=== PATIENT | female | born 1945 | race Caucasian/White ===

== ENCOUNTER 2022-04-14 08:54 | Emergency (ER) | payer OTHER ==
[2022-04-14] MEDS ORDERED: METHYLPREDNISOLONE 125 MG INJ ONE (09:02)
[2022-04-14] MEDS ORDERED: EPINEPHRINE/PF 1 MG/ML AMP ONE (09:02)
[2022-04-14] MEDS ORDERED: NA CHLORIDE 0.9% 1,000 ML ONE (09:02)
[2022-04-14] MEDS ORDERED: LEVALBUTEROL 1.25 MG/3 ML NEB ONE (09:02)
[2022-04-14] MEDS ORDERED: ALBUTEROL 2.5 MG/3 ML NEB SOL ONE (09:03)
[2022-04-14] MEDS ORDERED: IPRATROPIUM BROM 0.5MG/2.5ML ONE (09:03)
[2022-04-14] MEDS ORDERED: DIPHENHYDRAMINE 50 MG/ML VIAL ONE (09:14)
[2022-04-14] MEDS ORDERED: Magnesium Sulfate 2gm IVPB 2 G/50 ML BAG IV ONE (09:15)
--- NOTE | 2022-04-14 09:41 | RAD REPORT ---
EXAM DESCRIPTION: RAD - Chest Single View - 04/14/2022 9:30 am CLINICAL HISTORY: COPD Chest pain. COMPARISON: No comparisons FINDINGS: Portable technique limits examination quality. The lungs are moderately emphysematous but grossly clear. The heart is normal in size. No displaced f ractures. IMPRESSION: Moderate COPD.
[2022-04-14 09:46] LABS: Absolute Lymphocytes (CBC) 2.1 K/uL (0.7-4.9); Hematocrit 39.2 % (36.0-45.0); Lymphocytes % 18.2 % (15.3-44.8); MCV 93.4 fL (80-100); MPV 7.6 fL (7.6-11.3)
[2022-04-14 10:02] LABS: Potassium 3.5 mmol/L (3.5-5.1); Troponin High Sensitivity 25.2 pg/mL (<58.9)
--- NOTE | 2022-04-14 12:48 | ER ---
Nurse's Notes [facility] Name: Mary Freeman Age: 76 yrs Sex: Female : 1945 Arrival Date: 04/14/2022 Time: 08:59 Bed 13 Private MD: Diagnosis: COPD/ Chronic obstructive pulmonary disease, unspecified;Toxic effect of other insecticides, accidental (unintentional), initial encounter Presentation: 04/14 07:50 Chief complaint: Patient states: Bombing in the house for roaches and became short of jl7 breath, difficulty breathing, pt stating "I can't breathe. My throat is closing." 64% on RA on arrival to ED. 07:50 Coronavirus screen: At this time, the client does not indicate any symptoms associated jl7 with coronavirus-19. Ebola Screen: No symptoms or risks identified at this time. Initial Sepsis Screen: Does the patient meet any 2 criteria? RR > 20 per min. No. Patient's initial sepsis screen is negative. Does the patient have a suspected source of infection? No. Patient's initial sepsis screen is negative. Risk Assessment: Do you want to hurt yourself or someone else? Patient reports no desire to harm self or others. Onset of symptoms was April 14, 2022 at 08:30. Care prior to arrival: None. 07:50 Method Of Arrival: Wheelchair jl7 07:50 Acuity: GINGER 1 jl7 Triage Assessment: 08:50 General: Appears distressed, Behavior is cooperative, anxious, restless. Pain: Denies jl7 pain. Neuro: Level of Consciousness is awake, alert, obeys commands, Oriented to person, place, time, situation. Cardiovascular: Patient's skin is warm and dry. Respiratory: Reports shortness of breath air hunger Airway is patent pt reports "My throat is closing." Respiratory effort is labored, with retractions, Respiratory pattern is symmetrical, tachypnea Onset: The symptoms/episode began/occurred just prior to arrival, the patient has severe shortness of breath. Historical: - Allergies: 09:17 Iodine; jl7 - PMHx: 09:17 Hypothyroidism; hyperglycemia; COPD; jl7 - Immunization history:: Client reports receiving the 2nd dose of the Covid vaccine. - Social history:: Smoking status: Patient denies any tobacco usage or history of. Screenin:22 Abuse screen: Denies threats or abuse. Denies injuries from another. Nutritional jg9 screening: No deficits noted. Tuberculosis screening: No symptoms or risk factors identified. Fall Risk None identified. Assessment: 09:20 Reassessment: Patient is alert, oriented x 3, equal unlabored respirations, skin jg9 warm/dry/pink. patient reports she is feeling a little better, vitals are wnl, no obvious distress noted. Patient states symptoms have improved. Cardiovascular: Rhythm is sinus tachycardia. Respiratory: Airway is patent Breath sounds with wheezes bilaterally. 10:00 Reassessment: Patient is alert, oriented x 3, equal unlabored respirations, skin jg9 warm/dry/pink. Patient states feeling better. Patient states symptoms have improved. 10:25 Reassessment: patient is requesting to go home. Reassessment:. jg9 Vital Signs: 07:50 BP 175 / 95; Pulse 124; Resp 25; Temp 97.1; Pulse Ox 64% on R/A; Weight 44.45 kg; jl7 Height 5 ft. 4 in. (162.56 cm); 09:15 BP 120 / 70; Pulse 105; Resp 18 S; Pulse Ox 100% on Nebulizer Mask; jg9 10:15 BP 113 / 67; Pulse 102; Resp 23 S; Pulse Ox 97% on 3 lpm NC; jg9 11:15 BP 102 / 51; Pulse 96; Resp 17; Pulse Ox 96% on 3 lpm NC; jg9 12:15 BP 96 / 50; Pulse 85; Resp 17 S; Pulse Ox 98% on R/A; jg9 07:50 Body Mass Index 16.82 (44.45 kg, 162.56 cm) jl7 ED Course: 08:50 Arm band placed on right wrist. jl7 08:59 Patient arrived in ED. am2 09:00 Kyle Plummer DO is Attending Physician. ms3 09:01 Clayton Wilcox NP is PHCP. pm1 09:09 Inserted saline lock: 20 gauge in right forearm, using aseptic technique. Blood mb7 collected. 09:09 Patient has correct armband on for positive identification. Placed in gown. Bed in low mb7 position. Call light in reach. Side rails up X 1. Door closed. Noise minimized. Warm blanket given. 09:17 Triage completed. jl7 09:20 Sherri Burns, LIZETTE is Primary Nurse. jg9 09:20 EKG done, by ED staff, reviewed by Clayton Wilcox ENVIRONMENTAL GEOLOGIST. mb7 09:32 XRAY Chest (1 view) In Process Unspecified. EDMS 09:40 Basic Metabolic Panel Sent. mb7 09:40 CBC with Diff Sent. mb7 09:40 Troponin HS Sent. mb7 12:41 No provider procedures requiring assistance completed. jg9 Administered Medications: 08:57 Drug: SOLU-Medrol (methylPrednisoLONE) 125 mg Route: IVP; Site: right antecubital; jl7 10:27 Follow up: Response: No adverse reaction jg9 09:00 Drug: Albuterol - atroVENT (ipratropium) (3:1) (2.5 mg - 0.5 mg) 3 ml Route: Nebulizer; jl7 10:26 Follow up: Response: No adverse reaction; Wheezing diminished jg9 09:05 Drug: Benadryl (diphenhydrAMINE) 25 mg Route: IVP; Site: right antecubital; jl7 10:27 Follow up: Response: No adverse reaction jg9 09:08 Drug: EPINEPHrine 1mg/mL 1:1,000 0.3 mg Route: IM; Site: right deltoid; jl7 10:27 Follow up: Response: No adverse reaction; Marked relief of symptoms jg9 09:12 Drug: Magnesium Sulfate 2 grams Route: IVPB; Infused Over: 1 hrs; Site: right jl7 antecubital; 10:26 Follow up: IV Status: Completed infusion; IV Intake: 100ml jg9 12:50 Drug: Pepcid (famotidine) 20 mg Route: PO; jg9 12:57 Follow up: Response: No adverse reaction; Medication administered at discharge. jg9 Medication: 12:41 VIS not applicable for this client. jg9 Intake: 10:26 IV: 100ml; Total: 100ml. jg9 Outcome: 12:48 Discharge ordered by . pm1 12:58 Patient left the ED. jg9 Signatures: Dispatcher [employer] EDMS Clayton Wilcox, TAY ENVIRONMENTAL GEOLOGIST pm1 Bro Jay RN RN jl7 Marla Amador am2 Kyle Plummer DO DO ms3 Carmelina Salinas mb7 Sherri Burns RN RN jg9 Corrections: (The following items were deleted from the chart) 09:39 09:09 Inserted saline lock: 20 gauge in right upper arm, using aseptic technique. mb7 mb7
--- NOTE | 2022-04-14 12:48 | EDPHYS ---
Physician Documentation [facility] Name: Mary Freeman Age: 76 yrs Sex: Female : 1945 Arrival Date: 04/14/2022 Time: 08:59 Bed 13 Private MD: ED Physician Kyle Plummer HPI: 04/14 09:06 This 76 yrs old Female presents to ER via Wheelchair with complaints of Shortness Of pm1 Breath. 09:06 The patient has shortness of breath at rest, that occurred at home, and the patient has pm1 a history of COPD. Onset: The symptoms/episode began/occurred 2 hour(s) ago. Duration: The symptoms are continuous, and are markedly worse than the original presentation. The patient's shortness of breath is aggravated by cockroach fog/bomb, is alleviated by nothing. Associated signs and symptoms: Pertinent negatives: chest pain, non-productive cough, productive cough, fever. Severity of symptoms: in the emergency department the symptoms are worse. The patient has not experienced similar symptoms in the past. The patient has not recently seen a physician. 76-year-old patient presenting to the ER with complaints of shortness of breath after being exposed to cockroach fogger/bomb in her home. Patient's grandson initiated the insect bomb to eliminate infestation of cockroaches, but the patient stayed inside the house too long until it irritated her causing some shortness of breath. Patient with history of COPD, she took albuterol treatment at home without improvement and is presented to ER with shortness of breath that got worse on arrival to the ER. Historical: - Allergies: 09:17 Iodine; jl7 - PMHx: 09:17 Hypothyroidism; hyperglycemia; COPD; jl7 - Immunization history:: Client reports receiving the 2nd dose of the Covid vaccine. - Social history:: Smoking status: Patient denies any tobacco usage or history of. ROS: 09:06 Constitutional: Negative for fever, chills, and weight loss, Cardiovascular: Negative pm1 for chest pain, palpitations, and edema. 09:06 Abdomen/GI: Negative for abdominal pain, nausea, vomiting, diarrhea, and constipation, Back: Negative for injury and pain, MS/Extremity: Negative for injury and deformity, Skin: Negative for injury, rash, and discoloration, Neuro: Negative for headache, weakness, numbness, tingling, and seizure. 09:06 Respiratory: Positive for shortness of breath, at rest. Negative for cough. 09:06 All other systems are negative. Exam: 09:06 Constitutional: This is a well developed, well nourished patient who is awake, alert, pm1 and in no acute distress. Head/Face: Normocephalic, atraumatic. 09:06 Skin: Warm, dry with normal turgor. Normal color with no rashes, no lesions, and no evidence of cellulitis. MS/ Extremity: Pulses equal, no cyanosis. Neurovascular intact. Full, normal range of motion. 09:06 Cardiovascular: Rate: tachycardic, Rhythm: regular, Pulses: no pulse deficits are appreciated, Heart sounds: normal, Edema: is not appreciated. 09:06 Respiratory: moderate respiratory distress is noted, Respirations: accessory muscle usage, that is mild, tachypnea, 26 Breath sounds: decreased breath sounds, are located in both bases. 09:06 Neuro: Exam negative for acute changes, Orientation: is normal, Mentation: is normal, Motor: moves all fours. Vital Signs: 07:50 BP 175 / 95; Pulse 124; Resp 25; Temp 97.1; Pulse Ox 64% on R/A; Weight 44.45 kg; jl7 Height 5 ft. 4 in. (162.56 cm); 09:15 BP 120 / 70; Pulse 105; Resp 18 S; Pulse Ox 100% on Nebulizer Mask; jg9 10:15 BP 113 / 67; Pulse 102; Resp 23 S; Pulse Ox 97% on 3 lpm NC; jg9 11:15 BP 102 / 51; Pulse 96; Resp 17; Pulse Ox 96% on 3 lpm NC; jg9 12:15 BP 96 / 50; Pulse 85; Resp 17 S; Pulse Ox 98% on R/A; jg9 07:50 Body Mass Index 16.82 (44.45 kg, 162.56 cm) 7 MDM: 09:00 Patient medically screened. ms3 10:39 ED course: Patient wants to go home now since her symptoms are completely resolved. pm1 Patient is currently eating and she wants to go home to eat. Informed the patient that I cant force her to stay in the ER or the hospital but I requested that she at least let me watch for a long as possible since I gave her epinephrine for a severe allergic reaction/anaphylaxis. Patient agreed to stay around for another 1.5 hours. Patient's family member present in the room. 12:21 Data reviewed: vital signs. pm1 04/14 09:00 Order name: Basic Metabolic Panel; Complete Time: 10:07 ms3 04/14 09:00 Order name: CBC with Diff; Complete Time: 09:55 ms3 04/14 09:00 Order name: Troponin HS; Complete Time: 10:07 ms3 04/14 09:00 Order name: XRAY Chest (1 view); Complete Time: 09:49 ms3 04/14 09:00 Order name: EKG; Complete Time: 09:01 ms3 04/14 09:00 Order name: Cardiac monitoring; Complete Time: 09:12 ms3 04/14 09:00 Order name: EKG - Nurse/Tech; Complete Time: 09:25 ms3 07 09:00 Order name: IV Saline Lock; Complete Time: 09:10 ms3 04/14 09:00 Order name: Labs collected and sent; Complete Time: 09:12 ms3 04/14 09:00 Order name: O2 Per Protocol; Complete Time: 09:12 ms3 04/14 09:00 Order name: O2 Sat Monitoring; Complete Time: 09:12 ms3 Administered Medications: 08:57 Drug: SOLU-Medrol (methylPrednisoLONE) 125 mg Route: IVP; Site: right antecubital; jl7 10:27 Follow up: Response: No adverse reaction jg9 09:00 Drug: Albuterol - atroVENT (ipratropium) (3:1) (2.5 mg - 0.5 mg) 3 ml Route: Nebulizer; jl7 10:26 Follow up: Response: No adverse reaction; Wheezing diminished jg9 09:05 Drug: Benadryl (diphenhydrAMINE) 25 mg Route: IVP; Site: right antecubital; jl7 10:27 Follow up: Response: No adverse reaction jg9 09:08 Drug: EPINEPHrine 1mg/mL 1:1,000 0.3 mg Route: IM; Site: right deltoid; jl7 10:27 Follow up: Response: No adverse reaction; Marked relief of symptoms jg9 09:12 Drug: Magnesium Sulfate 2 grams Route: IVPB; Infused Over: 1 hrs; Site: right jl7 antecubital; 10:26 Follow up: IV Status: Completed infusion; IV Intake: 100ml jg9 12:50 Drug: Pepcid (famotidine) 20 mg Route: PO; jg9 12:57 Follow up: Response: No adverse reaction; Medication administered at discharge. jg9 Disposition: 09:01 76 yo female with pmh of COPD presents for sob that began 2 hours prior to arrival ms3 after inhaling duarte fogger. On exam patient is a/o x4, in respiratory distress, HR tachycardic without M/R/G, diffuse wheezing, skin cyanotic appearing. Discussed case with Clayton Wilcox, UPSETTING MACHINE OPERATOR, and discussed treatment plan.. 14:11 Co-signature as Attending Physician, Kyle Plummer DO Attestation: The patient's history, ms3 exam findings, diagnostics, and a summary of any interventions or procedures was reviewed in detail with Clayton Wilcox UPSETTING MACHINE OPERATOR. Chart complete. Chart complete. Chart complete. Chart complete. Disposition Summary: 04/14/22 12:48 Discharge Ordered Location: Home pm1 Problem: new pm1 Symptoms: have improved pm1 Condition: Stable pm1 Diagnosis - COPD/ Chronic obstructive pulmonary disease, unspecified pm1 - Toxic effect of other insecticides, accidental (unintentional), initial encounter pm1 Followup: pm1 - With: Emergency Department - When: As needed - Reason: Worsening of condition Followup: pm1 - With: Private Physician - When: 2 - 3 days - Reason: Recheck today's complaints, Continuance of care, Re-evaluation by your physician Discharge Instructions: - Discharge Summary Sheet pm1 - Chronic Obstructive Pulmonary Disease pm1 Forms: - Medication Reconciliation Form pm1 - Thank You Letter pm1 - Antibiotic Education pm1 - Prescription Opioid Use pm1 Prescriptions: - epinephrine 0.3 mg/0.3 mL Injection auto-injector - inject 0.3 milliliter by INTRAMUSCULAR route as directed As needed as needed pm1 for anaphylaxis; 1 Unspecified; Refills: 0, Product Selection Permitted - Benadryl 25 mg Oral Capsule - take 1 capsule by ORAL route every 6 hours As needed; 30 tablet; Refills: 0, pm1 Product Selection Permitted - Prednisone 20 mg Oral Tablet - take 3 tablets by ORAL route once daily for 5 days; 15 tablet; Refills: 0, pm1 Product Selection Permitted - Pepcid 20 mg Oral Tablet - take 1 tablet by ORAL route every 12 hours for 10 days; 20 tablet; Refills: 0, pm1 Product Selection Permitted Signatures: Dispatcher [employer] Clayton Huff, UPSETTING MACHINE OPERATOR UPSETTING MACHINE OPERATOR pm1 Bro Jay RN RN jl7 Kyle Plummer DO DO ms3 Sherri Burns RN RN jg9
[2022-04-14] MEDS ORDERED: FAMOTIDINE 20 MG TAB ONE (12:57)
[2022-04-14 13:13] VITALS: BP 96/50; O2SAT 98
--- NOTE | 2022-04-17 13:57 | EKG ---
Test Date: 2022-04-14 Test Time: 09:20:18 Needle Straightener: MB MEASUREMENT RESULTS: Intervals: Rate: 98 VT: 166 QRSD: 76 QT: 350 QTc: 446 [place]: P: 90 VT: 166 QRS: 84 T: 87 INTERPRETIVE STATEMENTS: Normal sinus rhythm Normal ECG No previous ECG available for comparison Electronically Signed On 04-17-22 13:49:54 CDT by Rome Razo
== END 2022-04-14 12:58 | disposition home or self-care (01) ==
LOC: ER 08:54
DX: R06.02 Shortness of breath (principal); J44.9 Chronic obstructive pulmonary disease, unspecified; T60.8X1A Toxic effect of other pesticides, accidental (unintentional), initial encounter; Z91.048 Other nonmedicinal substance allergy status
CPT/HCPCS: 85025; 80048; 36415; 84484; 71045; J0171; J1200; J3475; J7030; J2930; 93005